=== PATIENT | female | born 1970 | race Caucasian/White ===

== ENCOUNTER 2016-11-09 16:30 | Emergency (ER) | payer SELFPAY ==
[2016-11-09 17:18] VITALS: BP 121/89
--- NOTE | 2016-11-09 17:57 | UC ---
Jasmyn Aragon Emily, scribed for Alley Beach MD on 11/09/16 at 1754 . Lower Extremity/Ankle HPI - HPI Summary HPI Summary: This patient is a 46 year old F presenting to urgent care with a chief complaint of L foot pain that began 2 weeks ago. Pt has had cyst break on the bottom of her L foot two weeks ago. States a "shell" came out of her foot. There was clear drainage at the site at the time. Pt describes the site of the site has become red and painful. Pt states is no longer draining. + pain with ambulation. Pain radiates to the top of her L foot. The CC is described as burning and throbbing. Pt sates has been soaking with water and peroxide - no longer draining. The patient rates the pain 8/10 in severity. Symptoms aggravated by ambulation. Symptoms alleviated by nothing. PT does smoke cigarettes. Does not have a doctor. Does not know of any immunocompromised states. Unknown last tdap. Patient's medications reviewed this visit. - History of Current Complaint Chief Complaint: UCLowerExtremity Stated Complaint: TOE COMPLAINT Time Seen by Provider: 11/09/16 17:21 Hx Obtained From: Patient Onset/Duration: Sudden Onset, Lasting Weeks, Still Present Severity Initially: Severe Severity Currently: Severe Pain Intensity: 8 Pain Scale Used: 0-10 Numeric Aggravating Factor(s): Ambulation Alleviating Factor(s): Nothing Able to Bear Weight: Yes - with discomfort - Allergies/Home Medications Allergies/Adverse Reactions: Allergies Allergy/AdvReac Type Severity Reaction Status Date / Time No Known Allergies Allergy Verified 11/09/16 17:18 Home Medications: Home Medications Ibuprofen [Advil] 800 mg PO 11/09/16 [History] PMH/Surg Hx/FS Hx/Imm Hx - Additional Past Medical History Additional PMH: History of eczema on feet and hands. History of ganglion cysts. Previously Healthy: No - Surgical History Surgical History: Yes Surgery Procedure, Year, and Place: clavical repair - Family History Known Family History: Positive: Diabetes - Social History Occupation: Employed Full-time Lives: Alone Alcohol Use: Occasionally Substance Use Type: None Smoking Status (MU): Heavy Every Day Tobacco Smoker Type: Cigarettes Review of Systems Constitutional: Other - Negative fever Skin: Other - Positive redness at site of cyst, pain at site Eyes: Negative Motor: Other - L foot pain All Other Systems Reviewed And Are Negative: Yes Physical Exam Triage Information Reviewed: Yes Appearance: Well-Appearing, Well-Nourished, Pain Distress - discomfort with ambulation Vital Signs: Initial Vital Signs Temp 98.2 F 11/09/16 17:13 Pulse 78 11/09/16 17:13 Resp 18 11/09/16 17:13 BP 121/89 11/09/16 17:13 Pulse Ox 97 11/09/16 17:13 Neck: Positive: Supple Respiratory: Positive: Normal breath sounds, No respiratory distress, No accessory muscle use Cardiovascular: Positive: Other: - 2+ DP, PT CBT <2 sec Musculoskeletal Exam: Normal Musculoskeletal: Positive: Strength Intact Neurological Exam: Normal Neurological: Positive: Alert Psychological Exam: Normal Skin: Positive: Other - right foot - volar aspect - pt with sealed wound, obvious purlent material on bottom of toe and extending to webspace PT with warmth, circumferential erythema extending to the dorsum of foot. PT with mild fusiform edema + tenderness with movement mild discomfort tracking to the ball of foot. No fluctance to MT Lower Extremity Course/Dx - Course Course Of Treatment: Pt with obvious infection, fluctuance and warmth to the base of 3rd foot, erythema, warmth with circumferential edema and erythema. Pt with h/o tobacco use. Pt without PCP. Concern for tenosynovitis, possible osteomyolitis with poor follow-up. Recommended pt go to ED for further evaluation and treatment. States understanding and in agreement with plan. spoke with Dr. Saldana - aware of pt transfer by private car - Differential Dx/Diagnosis Provider Diagnoses: Cellulitis. Wound infection. concern for tenosynovitis Discharge - Discharge Plan Condition: Stable Disposition: TRANS HIGHER LVL OF CARE FAC Patient Education Materials: Cellulitis (ED) Referrals: No Primary Care Phys,NOPCP [Primary Care Provider] - Additional Instructions: The doctor that evaluated you today recommends you go to the emergency department for further evaluation and treatment. This may include blood work and possibly imaging. It recommended that you go to the emergency department. They will be expecting you The documentation as recorded by the Jasmyn larry Emily accurately reflects the service I personally performed and the decisions made by me, Alley Beach MD.
== END 2016-11-09 18:10 | disposition short-term general hospital (02) ==
LOC: UCEAST 16:30
DX: L03.116 Cellulitis of left lower limb (principal); Z79.891 Long term (current) use of opiate analgesic; F17.210 Nicotine dependence, cigarettes, uncomplicated
CPT/HCPCS: 99201; G0463

== ENCOUNTER 2016-11-09 18:49 | Emergency (ER) | payer SELFPAY ==
[2016-11-09 18:55] VITALS: BP 111/58
[2016-11-09 20:01] LABS: Hematocrit 43 % (35-47); Hemoglobin 14.7 g/dl (12.0-16.0); Mean Corpuscular HGB Conc 34 g/dl (31-36); Mean Corpuscular Hemoglobin 32 pg (27-31); Mean Corpuscular Volume 93 fL (80-97); Mean Platelet Volume 8 um3 (7.4-10.4); Red Blood Count 4.59 10^6/ul (4.0-5.4); Red Cell Distribution Width 14 % (10.5-15); White Blood Count 8.6 10^3/ul (3.5-10.8)
--- NOTE | 2016-11-09 20:13 | RAD ---
INDICATION: Left foot height and swelling COMPARISON: None. TECHNIQUE: 3 views of the left foot were obtained. FINDINGS: The adequately corticated bones are properly aligned. Degenerative changes include enthesophyte formation at the origin of the plantar fascia at the calcaneal tubercle. Joint spaces appear maintained. No fracture, dislocation or focal bony abnormality is seen. IMPRESSION: NO RADIOGRAPHICALLY APPARENT ACUTE ABNORMALITY. If the patient's symptoms persist, follow-up imaging is recommended.
[2016-11-09 20:17] LABS: Albumin 3.8 g/dL (3.2-5.2); BUN/Creatinine Ratio 19.8 (8-20); Calcium 9.4 mg/dL (8.6-10.3); EGFR African American 75.2 (>60); EGFR Non-African American 58.5 (>60); Globulin 3.4 g/dL (2-4); Potassium 3.6 mmol/L (3.5-5.0); Total Bilirubin 0.5 mg/dL (0.2-1.0); Total Protein 7.2 g/dL (6.4-8.9)
[2016-11-09] MEDS ORDERED: Lidocaine 1% INJ* 10 MG/ML 30 ML SDV INJ ONE (20:39)
[2016-11-09] MEDS ORDERED: Sulfamethox/Trimethoprim DS 800/160* TAB PO ONE (21:08)
--- NOTE | 2016-11-09 21:11 | ED ---
Lower Extremity - HPI Summary HPI Summary: 46F presents with infected cyst on left foot. She has had cyst for 5 years.She states that two weeks ago the cyst popped. She states that the cyst seem to come out. She states since then the site has become red and more swollen. She works on feet with steel toe boots to it has made the infection worst. She denies any spreading redness. She states pus like drainage has been coming from the site. She still has ROM. She denies any fevers. She is not diabetic. . - History of Current Complaint Chief Complaint: EDExtremityLower Stated Complaint: INFLAMED CYST ON LT FOOT-SENT FROM Time Seen by Provider: 11/09/16 20:03 Pain Intensity: 8 - Allergies/Home Medications Allergies/Adverse Reactions: Allergies Allergy/AdvReac Type Severity Reaction Status Date / Time No Known Allergies Allergy Verified 11/09/16 18:53 PMH/Surg Hx/FS Hx/Imm Hx Endocrine/Hematology History: Denies: Hx Anticoagulant Therapy, Hx Diabetes Cardiovascular History: Denies: Hx Myocardial Infarction - Surgical History Surgery Procedure, Year, and Place: clavical repair - Immunization History Date of Tetanus Vaccine: Pt reports last tdap x 7 yrs ago Infectious Disease History: No Infectious Disease History: Denies: Traveled Outside the [place] in Last 30 Days - Family History Known Family History: Positive: Diabetes - Social History Alcohol Use: Occasionally Substance Use Type: Reports: None Smoking Status (MU): Heavy Every Day Tobacco Smoker Type: Cigarettes Review of Systems Negative: Fever Negative: Chest Pain Negative: Shortness Of Breath Positive: Other - infected cyst left foot All Other Systems Reviewed And Are Negative: Yes Physical Exam Triage Information Reviewed: Yes Vital Signs On Initial Exam: Initial Vitals Temp Pulse Resp BP Pulse Ox 97.5 F 87 16 111/58 95 11/09/16 18:53 11/09/16 18:53 11/09/16 18:53 11/09/16 18:53 11/09/16 18:53 Vital Signs Reviewed: Yes Appearance: Positive: Well-Appearing Skin: Positive: Warm, Dry, Other - abscess on phlanax of left middle toe Head/Face: Positive: Normal Head/Face Inspection Eyes: Positive: Normal, Conjunctiva Clear Respiratory/Lung Sounds: Positive: Clear to Auscultation, Breath Sounds Present Cardiovascular: Positive: Normal, RRR Musculoskeletal: Positive: Strength/ROM Intact - toes, Other - no fusiform swelling toe, able to extend and flex toe with swelling, no swelling along tendon, good pulses, capillary refill<2 secs, sensation grossly intact Procedures - Incision and Drainage Site: left middle toe Anesthesia: Local Instrument(s): Scalpel Diagnostics - Vital Signs Vital Signs Temp Pulse Resp BP Pulse Ox 11/09/16 18:53 97.5 F 87 16 111/58 95 - Laboratory Lab Results: Lab Results 11/09/16 11/09/16 11/09/16 Range/Units 19:50 19:50 19:50 WBC 8.6 (3.5-10.8) 10^3/ul RBC 4.59 (4.0-5.4) 10^6/ul Hgb 14.7 (12.0-16.0) g/dl Hct 43 (35-47) % MCV 93 (80-97) fL MCH 32 H (27-31) pg MCHC 34 (31-36) g/dl RDW 14 (10.5-15) % Plt Count 279 (150-450) 10^3/ul MPV 8 (7.4-10.4) um3 Neut % (Auto) 45.6 (38-83) % Lymph % (Auto) 43.2 (25-47) % Perkins % (Auto) 9.1 H (1-9) % Eos % (Auto) 1.7 (0-6) % Baso % (Auto) 0.4 (0-2) % Absolute Neuts (auto) 3.9 (1.5-7.7) 10^3/ul Absolute Lymphs (auto) 3.7 (1.0-4.8) 10^3/ul Absolute Monos (auto) 0.8 (0-0.8) 10^3/ul Absolute Eos (auto) 0.1 (0-0.6) 10^3/ul Absolute Basos (auto) 0 (0-0.2) 10^3/ul Absolute Nucleated RBC 0 10^3/ul Nucleated RBC % 0 Sodium 140 (133-145) mmol/L Potassium 3.6 (3.5-5.0) mmol/L Chloride 108 (101-111) mmol/L Carbon Dioxide 28 (22-32) mmol/L Anion Gap 4 (2-11) mmol/L BUN 20 (6-24) mg/dL Creatinine 1.01 H (0.51-0.95) mg/dL Est GFR ( Amer) 75.2 (>60) Est GFR (Non-Af Amer) 58.5 (>60) BUN/Creatinine Ratio 19.8 (8-20) Glucose 99 (70-100) mg/dL Lactic Acid 0.7 (0.5-2.0) mmol/L Calcium 9.4 (8.6-10.3) mg/dL Total Bilirubin 0.50 (0.2-1.0) mg/dL AST 25 (13-39) U/L ALT 37 (7-52) U/L Alkaline Phosphatase 76 (34-104) U/L C-React Prot High Sens 4.32 mg/L Total Protein 7.2 (6.4-8.9) g/dL Albumin 3.8 (3.2-5.2) g/dL Globulin 3.4 (2-4) g/dL Albumin/Globulin Ratio 1.1 (1-3) Result Diagrams: 11/09/16 19:50 11/09/16 19:50 Lab Statement: Any lab studies that have been ordered have been reviewed, and results considered in the medical decision making process. - Radiology foot Xray Interpretation: No Acute Changes Radiology Interpretation Completed By: Radiologist Lower Extremity Course/Dx - Course Course Of Treatment: 46F presents with infected cyst on left foot. She has had cyst for 5 years.She states that two weeks ago the cyst popped. She states that the cyst seem to come out. She states since then the site has become red and more swollen. She works on feet with steel toe boots to it has made the infection worst. She denies any spreading redness. She states pus like drainage has been coming from the site. She still has ROM. She denies any fevers. She is not diabetic. on exam has swelling with fluctant mass on phalanx of left middle toe. does not appear like tenosynovitis. labs normal and xray normal. successfull I&D area and got cyst wall and 3cc of pus. told to continue warm soaks and placed on bactrim. told to follow up with ED or urgent care in 2 days. patient understands and agrees with plan. - Diagnoses Differential Diagnosis/HQI/PQRI: Positive: Other - cellulitis, osteo, abscess Provider Diagnoses: Foot abscess, left Discharge - Discharge Plan Condition: Good Disposition: HOME Prescriptions: Sulfamethox/Trimethoprim DS* [Bactrim DS 800/160 TAB*] 1 tab PO BID #19 tab Patient Education Materials: Abscess (ED) Forms: *Work Release Referrals: [facility] [Outside] Jeff Marcus DPM [Doctor of Podiatric Medicine] - Additional Instructions: Take antibiotic twice a day for 10 days, first dose given in ED warm soaks twice a day Take ibuprofen or Tylenol for pain every 6 hours Follow up with ED or urgent care in two days for wound check Establish care with primary Follow up with podiatry Return to ED if develop fever, area of redness spreads, or any new or worsening symptoms
--- NOTE | 2016-11-10 09:57 | PN ---
Progress Note - Progress Note Date of Service: 11/09/16 Note: wound culture grew s. aureus positive and MRSA negative. placed on bactrim at d/c. no further change required at this time. will wait for final culture sensitivity results.
--- NOTE | 2016-11-12 07:52 | PN ---
Progress Note - Progress Note Date of Service: 11/09/16 Note: Wound culture grew s. aureus withi negative MRSA Patient placed on Bactrim prior to discharge. Culture shows sensitivities to Bactrim. Nothing further at this time, Jessica Thomas PA-C
== END 2016-11-09 22:05 | disposition home or self-care (01) ==
LOC: ED 18:49
DX: L02.612 Cutaneous abscess of left foot (principal); F17.210 Nicotine dependence, cigarettes, uncomplicated; A49.01 Methicillin susceptible Staphylococcus aureus infection, unspecified site
CPT/HCPCS: 10060; 36415; 80053; 83605; 85025; 86141; 87070; 87077; 87186; 87205; 87640; 87641; 99283; A9270-GY; J2001

== ENCOUNTER 2019-04-21 14:15 | Emergency (ER) | payer OTHER ==
[2019-04-21 15:14] VITALS: BP 128/77
--- NOTE | 2019-04-21 15:15 | UC ---
Skin Complaint HPI - HPI Summary HPI Summary: 49-year-old female who burned her left forearm on a piece of hot plastic while at work on April 13, 2019. She has been applying some antibiotic ointment to it however wanted checked today because it's more red and tender with some pus drainage. She states her last tetanus was within the last 5 years. - History of Current Complaint Chief Complaint: UCSkin Time Seen by Provider: 04/21/19 15:08 Stated Complaint: WC-BURN LEFT WRIST/HAND ON 04/13/19 Hx Obtained From: Patient ?: No Onset/Duration: Sudden Onset, Lasting Days Skin Exposure Onset/Duration: Days Ago Timing: Constant Onset Severity: Severe Current Severity: Mild Pain Intensity: 6 - Allergy/Home Medications Allergies/Adverse Reactions: Allergies Allergy/AdvReac Type Severity Reaction Status Date / Time No Known Allergies Allergy Verified 04/21/19 15:08 Home Medications: Home Medications Cephalexin CAP* [Keflex 500 CAP*] 500 mg PO TID 10 Days #30 cap 04/21/19 [Rx] Ibuprofen TAB* [Advil TAB*] 400 mg PO ONCE 04/21/19 [History Confirmed 04/21/19] PMH/Surg Hx/FS Hx/Imm Hx Previously Healthy: Yes Other History Of: Negative For: Anticoagulant Therapy - Surgical History Surgical History: Yes Surgery Procedure, Year, and Place: clavical repair. bilateral carpal tunnel - Family History Known Family History: Positive: Diabetes - Social History Occupation: Employed Full-time Lives: With Family Alcohol Use: Occasionally Substance Use Type: None Smoking Status (MU): Heavy Every Day Tobacco Smoker Type: Cigarettes Amount Used/How Often: 1 ppd Review of Systems All Other Systems Reviewed And Are Negative: Yes Skin: Positive: Other - Burn to left forearm on April 12 which has been healing however today is red with some pus drainage. Is Patient Immunocompromised?: No Physical Exam Triage Information Reviewed: Yes Appearance: Well-Appearing, No Pain Distress, Well-Nourished Vital Signs: Initial Vital Signs Temp 98 F 04/21/19 15:09 Pulse 76 04/21/19 15:09 Resp 14 04/21/19 15:09 BP 128/77 04/21/19 15:09 Pulse Ox 97 04/21/19 15:09 Vital Signs Reviewed: Yes Musculoskeletal Exam: Normal Musculoskeletal: Positive: Strength Intact, ROM Intact, Other: - Hand and fingers with full range of motion good finger strength to flexion extension against resistance. Neurological Exam: Normal Psychological Exam: Normal Skin: Positive: Other - Patient has a burn measuring approximately 4.0 cm on the dorsal aspect of her left distal forearm. It is surrounded by cellulitis and tenderness with exudate at the site however no exudate can be expressed. There are no red streaks. Course/Dx - Course Course Of Treatment: The patient is comfortable here and in no distress. She was encouraged to change dressing daily let it air out at night. She can apply antibiotic ointment to that area and definite [facility]. - Diagnoses Provider Diagnosis: Burn of forearm, left, Cellulitis of forearm, left Discharge ED - Sign-Out/Discharge Documenting (check all that apply): Patient Departure All imaging exams completed and their final reports reviewed: No Studies - Discharge Plan Condition: Fair Disposition: HOME Prescriptions: Cephalexin CAP* [Keflex 500 CAP*] 500 mg PO TID 10 Days #30 cap Patient Education Materials: Cellulitis (DC) Referrals: [facility] [Outside] No Primary Care Phys,NOPCP [Primary Care Provider] - Additional Instructions: Change her dressing daily and apply antibiotic ointment. Follow-up with your primary care provider or [facility] if any worsening symptoms or red streaks or arm and or fever. - Billing Disposition and Condition Condition: FAIR Disposition: Home
== END 2019-04-21 15:28 | disposition home or self-care (01) ==
LOC: UCCORT 14:15
DX: T22.012A Burn of unspecified degree of left forearm, initial encounter (principal); L03.114 Cellulitis of left upper limb; F17.210 Nicotine dependence, cigarettes, uncomplicated; X08.8XXA Exposure to other specified smoke, fire and flames, initial encounter; Y92.9 Unspecified place or not applicable; Y99.0 Civilian activity done for income or pay
CPT/HCPCS: 99212; G0463

== ENCOUNTER 2019-04-25 14:35 | Emergency (ER) | payer SELFPAY ==
[2019-04-25 16:15] VITALS: BP 130/79
[2019-04-25 16:50] LABS: Influenza A Molecular Negative (Negative); Influenza B Molecular Negative (Negative)
--- NOTE | 2019-04-25 17:00 | UC ---
FLU HPI - HPI Summary HPI Summary: 49-year-old female presents with 4 day history of general malaise, fatigue, fever, chills, headache, body aches, nasal congestion, runny nose, sore throat, and nonproductive cough. No recent travel or direct contact with persons isolated forward diagnosed with COVID-19. Reports she was seen at this facility on 04/21/2019 for a thermal burn to the left forearm and is requesting a wound check this time. Denies ear pain, dysphagia, chest pain, shortness of breath, abdominal pain, nausea, vomiting, increased redness or swelling of the arm, or purulent drainage from the wound. - History of Current Complaint Chief Complaint: UCGeneralIllness Stated Complaint: SORE THROAT, BODY ACHES, FEVER Time Seen by Provider: 04/25/19 16:30 Hx Obtained From: Patient Pain Intensity: 6 - Allergy/Home Medications Allergies/Adverse Reactions: Allergies Allergy/AdvReac Type Severity Reaction Status Date / Time cephalexin [From Keflex] Allergy Hives Verified 04/25/19 16:15 Home Medications: Home Medications Benzonatate CAP* [Tessalon 100 MG CAP*] 100 mg PO TID PRN #21 cap 04/25/19 [Rx] PMH/Surg Hx/FS Hx/Imm Hx Previously Healthy: Yes - Denies significant PMH Other History Of: Negative For: Anticoagulant Therapy - Surgical History Surgical History: Yes Surgery Procedure, Year, and Place: clavical repair. bilateral carpal tunnel - Family History Known Family History: Positive: Diabetes - Social History Occupation: Employed Full-time Lives: Alone Alcohol Use: None Substance Use Type: None Smoking Status (MU): Heavy Every Day Tobacco Smoker Type: Cigarettes Amount Used/How Often: 1/2 ppd - Immunization History Most Recent Tetanus Shot: within the last 5 years Review of Systems All Other Systems Reviewed And Are Negative: Yes Constitutional: Positive: Fever, Chills, Fatigue Skin: Positive: Other - See HPI Eyes: Negative: Drainage, Eye Redness ENT: Positive: Sore Throat, Nasal Discharge, Sinus Congestion. Negative: Ear Ache, Sinus Pain/Tenderness Respiratory: Positive: Cough. Negative: Shortness Of Breath Cardiovascular: Negative: Chest Pain Gastrointestinal: Negative: Abdominal Pain, Vomiting, Diarrhea, Nausea Genitourinary: Positive: Negative Musculoskeletal: Positive: Myalgia Neurological/Mental Status: Positive: Negative Is Patient Immunocompromised?: No Physical Exam - Summary Physical Exam Summary: GENERAL APPEARANCE: Alert and cooperative adult female appears to be in no acute distress. EYES: Conjunctiva clear. No drainage. EARS: External auditory canals and tympanic membranes clear, hearing grossly intact. NOSE: Moderate nasal congestion without nasal discharge. THROAT: Pharyngeal erythema without tonsilar inflammation, swelling, exudate, or lesions. Uvula midline. NECK: Neck supple, non-tender without lymphadenopathy. CARDIAC: Normal S1 and S2. No S3, S4 or murmurs. Rhythm is regular. There is no peripheral edema, cyanosis or pallor. Extremities are warm and well perfused. Capillary refill is less than 2 seconds. Peripheral pulses intact. LUNGS: Clear to auscultation without rales, rhonchi, wheezing or diminished breath sounds. Dry nonproductive cough. ABDOMEN: Positive bowel sounds. Soft, nondistended, nontender. No guarding or rebound. No masses or hepatosplenomegally. MUSKULOSKELETAL: ROM intact to all extremities. No joint erythema or tenderness. Normal muscular development. Normal gait. SKIN: Skin normal color, texture and turgor. Well healing 2nd degree burn to the left forearm. Small amount of eschar noted within the wound. No purulent drainage. Triage Information Reviewed: Yes Vital Signs: Initial Vital Signs Temp 97.5 F 04/25/19 16:12 Pulse 91 04/25/19 16:12 Resp 20 04/25/19 16:12 BP 130/79 04/25/19 16:12 Pulse Ox 97 04/25/19 16:12 Vital Signs Reviewed: Yes Flu Course/Dx - Course Course Of Treatment: 49-year-old female presents with 4 day history of general malaise, fatigue, fever, chills, headache, body aches, nasal congestion, runny nose, sore throat, and nonproductive cough. No recent travel or direct contact with persons isolated forward diagnosed with COVID-19. Reports she was seen at this facility on 04/21/2019 for a thermal burn to the left forearm and is requesting a wound check this time. Denies ear pain, dysphagia, chest pain, shortness of breath, abdominal pain, nausea, vomiting, increased redness or swelling of the arm, or purulent drainage from the wound. Afebrile. Vital signs stable. Patient had moderate nasal congestion without discharge, normal TMs, pharyngeal erythema without tonsillar swelling or exudate, no cervical lymphadenopathy, clear bilateral breath sounds, dry nonproductive cough, a well healing 2nd degree burn to the left forearm with a small amount of eschar noted within the wound, no purulent drainage, and otherwise unremarkable exam. Rapid flu test was negative. Reviewed results with the patient. Recommending symptomatic treatment for viral upper respiratory infection as well as continued wound care for the burn. She is to return here or follow up with primary care in 5-7 days if her URI symptoms persist. Anticipatory guidance and warning symptoms were reviewed with the patient. Verbalizes understanding and agrees with plan of care. - Differential Dx/Diagnosis Differential Diagnosis/HQI/PQRI: Bronchitis, Influenza, Pneumonia, Upper Respiratory Infection Provider Diagnosis: Viral URI with cough, Thermal burn, Visit for wound check Discharge ED - Sign-Out/Discharge Documenting (check all that apply): Patient Departure All imaging exams completed and their final reports reviewed: No Studies - Discharge Plan Condition: Stable Disposition: HOME Prescriptions: Benzonatate CAP* [Tessalon 100 MG CAP*] 100 mg PO TID PRN #21 cap PRN Reason: Cough Patient Education Materials: Upper Respiratory Infection (ED) Referrals: No Primary Care Phys,NOPCP [Primary Care Provider] - Additional Instructions: The rapid flu test performed in the clinic today was negative. Your history and exam are consistent with a viral upper respiratory infection. Viral infections do not respond to antibiotics and are limited to the treatment of symptoms. Viral infections typically run their course in 7-10 days. Drink plenty of fluids to avoid dehydration especially if you are running any fever. Use an over the counter decongestant such as Sudafed according to directions for the congestion. Take Tessalon Perles 1 capsule every 8 hours as needed for cough. Take over the counter acetaminophen (Tylenol) or ibuprofen (Advil, Motrin) according to directions as needed for pain or fever. Use salt water gargles several times a day if you have a sore throat. You may also use Chloraseptic spray or Cepacol lonzenges according to directions which contain a numbing medication and can provide some temporary relief from your sore throat. Return here or follow up with primary care in 5-7 days if symptoms persist. I have provided you with the contact information for the [facility] physician referral service if you need assistance with establishing with a provider. Seek immediate medical attention in the emergency room if you have fever greater than 100.5 F despite taking acetaminophen or ibuprofen, have chest pain , difficulty breathing, are unable to swallow, or have any worsening of symptoms. The burn wound on your left forearm appears to be healing well. Continue to keep clean with a mild soap and water. Apply antibiotic ointment and using a nonstick dressing to keep the wound covered. Watch for signs of infection including fever greater than 100.5 F, severe pain not managed with over the counter pain medication, redness that spreads rapidly , increased swelling, or pus draining from the wound. Seek immediate medical attention should any of these occur. - Billing Disposition and Condition Condition: STABLE Disposition: Home
== END 2019-04-25 17:25 | disposition home or self-care (01) ==
LOC: UCCORT 14:35
DX: J06.9 Acute upper respiratory infection, unspecified (principal); R05 Cough; T22.012D Burn of unspecified degree of left forearm, subsequent encounter; F17.210 Nicotine dependence, cigarettes, uncomplicated; Z88.1 Allergy status to other antibiotic agents; X08.8XXD Exposure to other specified smoke, fire and flames, subsequent encounter
CPT/HCPCS: 99212; G0463